=== PATIENT | male | born 1975 | race Caucasian/White ===

== ENCOUNTER 2016-12-16 23:47 | Emergency (ER) | payer SELFPAY | END 2016-12-17 07:15 | disposition home or self-care (01) | LOC: ER 23:47 | DX: R07.89 Other chest pain (principal); F12.10 Cannabis abuse, uncomplicated; F15.10 Other stimulant abuse, uncomplicated; F17.210 Nicotine dependence, cigarettes, uncomplicated; Z90.49 Acquired absence of other specified parts of digestive tract; Z88.5 Allergy status to narcotic agent; Z88.0 Allergy status to penicillin | CPT/HCPCS: 36415; 80307; 96374; G0480; J2060 ==

== ENCOUNTER 2017-01-17 16:42 | Emergency (ER) | payer MEDICARE | END 2017-01-17 18:27 | disposition left against medical advice (07) | LOC: ER 16:42 | DX: N17.9 Acute kidney failure, unspecified (principal); R25.2 Cramp and spasm; F17.210 Nicotine dependence, cigarettes, uncomplicated; Z88.0 Allergy status to penicillin; Z88.5 Allergy status to narcotic agent; X30.XXXA Exposure to excessive natural heat, initial encounter | CPT/HCPCS: 36415; 96360 ==